=== PATIENT | male | born 1960 | race Caucasian/White ===

== ENCOUNTER 2019-01-24 09:00 | Inpatient (IN) | payer BC ==
[2019-01-24 09:51] LABS: Hemoglobin 14.2 g/dL (14.0-18.0); Mean Corpuscular HGB CONC 33.5 g/dL (32.0-36.0); Mean Corpuscular Hemoglobin 29.8 pg (27.0-31.0); Mean Platelet Volume 6.8 fL (7.4-10.4); Platelet Count 291 thou/uL (130-400); RBC Distribution Width 11.5 % (11.5-14.5); Red Blood Cell (RBC) Count 4.76 mill/uL (4.70-6.10); White Blood Cell (WBC) Count 9.4 thou/uL (4.8-10.8)
[2019-01-24 10:08] LABS: Anion Gap 13 mmol/L (10-20); BUN (Urea Nitrogen) 16 mg/dL (8.4-25.7); Calc. Creatinine Clearance 0 mL/min (70-130); Calcium 9.3 mg/dL (7.8-10.44); Carbon Dioxide 26 mmol/L (22-29); Chloride 105 mmol/L (98-107); Estimated GFR-MDRD Greater than 90; Glucose 88 mg/dL (70-105); Potassium 4.6 mmol/L (3.5-5.1); Sodium 139 mmol/L (136-145)
[2019-01-28] MEDS ORDERED: Albumin 5% 500 ML ONE (06:38)
[2019-01-28] MEDS ORDERED: Vecuronium 10 MG VIAL ONE ×2 (06:50→17:47)
[2019-01-28] MEDS ORDERED: Dexmedetomidine 200 MCG/2 ML VIAL ONE (06:50)
[2019-01-28] MEDS ORDERED: Midazolam HCl 5 mg/5 ml Vial ONE (06:50)
[2019-01-28] MEDS ORDERED: Fentanyl 250 MCG/5 ML VIAL ONE (06:50)
[2019-01-28] MEDS ORDERED: Midazolam HCl 2 mg/2 ml Vial ONE (07:05)
[2019-01-28] MEDS ORDERED: Heparin 10,000 UNITS/1 ML VIAL 30,000 UNITS in Sodium Chloride 0.9% 1,000 ML FS SCH (07:30)
[2019-01-28] MEDS ORDERED: hydrALAZINE 20 MG/ML VIAL SLOW IVP PRN (10:36)
[2019-01-28] MEDS ORDERED: Guaifenesin DM 100-10/5 ML UDCUP PO PRN (10:36)
[2019-01-28] MEDS ORDERED: niCARdipine 25 MG in Sodium Chloride 0.9% 250 ML 250 ML IVPB PRN (10:36)
[2019-01-28] MEDS ORDERED: Fentanyl 100 MCG/2 ML VIAL SLOW IVP PRN (10:36)
[2019-01-28] MEDS ORDERED: Bisacodyl 10 MG SUPP PR PRN (10:36)
[2019-01-28] MEDS ORDERED: HYDROcodone/Acetaminophen 5/325 mg Tablet PO PRN (10:36)
[2019-01-28] MEDS ORDERED: Norepinephrine 8 MG/0.9% NS 250 ML IVPB PRN (10:36)
[2019-01-28] MEDS ORDERED: Promethazine HCl 25 MG/ML VIAL IM PRN (10:36)
[2019-01-28] MEDS ORDERED: Nitroglycerin 50 MG/250 ML BOT 250 ML IVPB PRN (10:36)
[2019-01-28] MEDS ORDERED: Potassium Chloride 20 MEQ/100 ML PREMIX BAG IVPB PRN (10:36)
[2019-01-28] MEDS ORDERED: Acetaminophen 325 MG TAB PO PRN (10:36)
[2019-01-28] MEDS ORDERED: Post-Op Insulin Drip Protocol IVPB ONE (10:36)
[2019-01-28] MEDS ORDERED: Hetastarch 6% 500 ML 500 ML IVPB PRN (10:36)
[2019-01-28] MEDS ORDERED: Bisacodyl 5 MG TAB PO PRN (10:36)
[2019-01-28] MEDS ORDERED: Ondansetron PF 4 MG/2 ML Vial IVP PRN (10:36)
[2019-01-28] MEDS ORDERED: Mag-Al 1200 mg/1200 mg/30 ML UDCUP PO PRN (10:36)
[2019-01-28] MEDS ORDERED: DOPamine 400 MG/D5W 250 ML 250 ML IVPB PRN (10:36)
[2019-01-28] MEDS ORDERED: Magnesium 2 GM/50 ML 2 GM in Premix Bag 1 BAG IVPB SCH (10:45)
[2019-01-28] MEDS ORDERED: Dextrose 5% in Water 1,000 ML IV PRN (11:02)
[2019-01-28] MEDS ORDERED: HUMULIN R 100 UNITS in Sodium Chloride 0.9% 100 ML IVPB SCH (11:02)
[2019-01-28] MEDS ORDERED: Insulin Regular 300 UNITS/3 ML VIAL SC PRN (11:02)
[2019-01-28] MEDS ORDERED: Dextrose 50% Abboject 50 ML SYRINGE SLOW IVP PRN (11:02)
[2019-01-28] MEDS ORDERED: Morphine 4 MG/ML VIAL ONE (11:15)
--- NOTE | 2019-01-28 11:22 | OP ---
DATE OF PROCEDURE: 01/28/2019 PREOPERATIVE DIAGNOSIS: Coronary artery disease. PROCEDURE PERFORMED: Coronary artery bypass graft x3, left internal mammary artery to a 2 mm left anterior descending, saphenous vein graft to 1.5 mm high diagonal and 1.5 mm OM second branch. SCRUBBER SYSTEM ATTENDANT: Rajesh Burleson MD. FINDINGS: Vessels were good quality as were conduit. DESCRIPTION OF PROCEDURE: After adequate anesthesia had been obtained, an endovascular vein harvest of the left greater saphenous vein was performed. Dr. Burleson did this. I have performed a median sternotomy harvesting the left internal mammary artery. The patient was heparinized. The mammary was brought medial to the long behind a small amount of thymus gland. Neither pleurae were entered knowingly. Aorta and right atrium were cannulated. Cardiopulmonary bypass was begun. Heart was small. Aorta was cross-clamped, and after a liter of cold blood cardioplegia, 3 distal anastomoses were completed, following which 2 proximal anastomosis were completed with the cross-clamp off and the partial occluding clamp on. Both of these were marked with rings, and after inspecting for hemostasis, the patient was weaned from cardiopulmonary bypass, cannula was removed and Prolene suture was used to secure the aorta. Mediastinal drains x2 were placed following which the sternum was reapproximated with combination of #7 interrupted wire and 3 zip ties. Vancomycin paste was used on the sternal edges as was platelet rich blood. Subcutaneous tissue and skin were closed in layers. Job ID: [id number]
[2019-01-28] MEDS: Ketorolac Tromethamine 30 MG/ML VIAL IVP SCH ×2 (11:29→17:48)
[2019-01-28 11:30] LABS: #Basophils 0.1 thou/uL (0.0-0.2); #Eosinphils 0.2 thou/uL (0.0-0.7); #Lymphocytes 1.4 thou/uL (1.20-3.40); #Monocytes 0.7 thou/uL (0.11-0.59); #Neutrophils 15.3 thou/uL (1.40-6.50); %Basophils 0.3 % (0.0-1.0); %Eosinophils 1.3 % (0.0-10.0); %Lymphocytes 7.9 % (21.0-51.0); %Monocytes 3.8 % (0.0-10.0); %Neutrophils 86.7 % (42.0-75.0); Hemoglobin 11.7 g/dL (14.0-18.0); Mean Corpuscular HGB CONC 33.6 g/dL (32.0-36.0); Mean Corpuscular Hemoglobin 30.1 pg (27.0-31.0); Mean Corpuscular Volume 89.5 fL (78.0-98.0); Platelet Count 186 thou/uL (130-400); RBC Distribution Width 11.6 % (11.5-14.5); White Blood Cell (WBC) Count 17.6 thou/uL (4.8-10.8)
[2019-01-28] MEDS: Lactated Ringer's 1,000 ML IV SCH (11:31)
[2019-01-28 11:36] LABS: Actual Bicarbonate (HCO3a) 23.6 mEq/L (22-28); Base Excess (BEa) -4.5 mEq/L (-2.0 to +3.0); CO2 Tension 57.1 mmHg (35.0-45.0); Calcium, Ionized 1.13 mmol/L (1.12-1.30); Carboxyhemoglobin (COHb) 0.6 gm% (0.0-3.0); Hemoglobin (Hb) 12.4 g/dL (14.0-18.0); O2 Tension (PaO2) 236.1 mmHg (80.0-100.0); Potassium - ABG Lab 4.47 mmol/L (3.70-5.30)
[2019-01-28 11:39] LABS: pH, Arterial 7.23 (7.35-7.45)
[2019-01-28 11:40] LABS: ALV-art Gradient 49.025 (0-20); Puncture Site ALINE
[2019-01-28 11:44] LABS: INR-International Normal Ratio 1.4; PTT 35.4 SEC (22.9-36.1); Prothrombin Time 17.3 SEC (12.0-14.7)
--- NOTE | 2019-01-28 11:47 | RAD ---
Frontal radiograph chest portable supine: 01/28/2019 COMPARISON: None HISTORY: Evaluate chest following open heart surgery FINDINGS: Supine imaging demonstrates no focal consolidation or alveolar edema. Evaluation for pleura l fluid and pneumothorax is limited on supine imaging. There is an endotracheal tube in proper position. Midline sternotomy wires are noted. Coronary arterial calcification and/or stent material i s present. There is a right-sided vascular catheter with distal tip overlying the region of the cavoatrial junction. Postsurgical drainage catheters overlie the mediastinum. IMPRESSION: Postoperative changes as detailed above.
[2019-01-28 11:53] LABS: Anion Gap 5 mmol/L (10-20); BUN (Urea Nitrogen) 14 mg/dL (8.4-25.7); Calc. Creatinine Clearance 114 mL/min (70-130); Calcium 7.5 mg/dL (7.8-10.44); Carbon Dioxide 26 mmol/L (22-29); Chloride 112 mmol/L (98-107); Estimated GFR-MDRD Greater than 90; Glucose 113 mg/dL (70-105); Potassium 4.5 mmol/L (3.5-5.1); Sodium 138 mmol/L (136-145)
[2019-01-28 13:19] VITALS: BMI 18.9
[2019-01-28] MEDS: CEFAZOLIN 2 GM in Premix Bag 1 BAG IVPB SCH ×2 (14:09→21:21)
--- NOTE | 2019-01-28 14:53 | PDOC.PULCN ---
Pulmonology Consult: HPI - Date of Consult Date: 01/28/19 Time: 14:53 - Consult Details Reason for Consult: chronic cough Requesting Physician: Dr. Won Youssef - History of Present Illness HPI: 58YOM with a PMH significant for CAD post-op day #0 s/p CABG of LAD, COPD, HTN & HLD who was admitted to the CCU following his procedure for close management by pulmonology due to a reported chronic cough. He currently remains intubated & sedated so a detailed HPI was limited. Pulmonology Consult: ROS - Review of Systems ROS unobtainable: due to endotracheal tube Pulmonology Consult: PMH Source: other (chart review) Past Medical History: CAD s/p CT & CABG HLD HTN COPD h/o pneumothroax at age 19 - Family History Pertinent family history: Father- HTN & CV disease but at age 86 Mother- HTN & at age 79 - Social History Smoking Status: Former smoker (quit 2 months ago; smoked 20-30 cigs/day before quitting ~ 2 months ago) Alcohol Use: none Living Situation: Pulmonology Consult: Meds - Medications MAR Reviewed: Yes Medications: Current Medications Acetaminophen (Tylenol) 650 mg PO Q6H PRN PRN Reason: Headache/Fever Or Mild Pain Hydrocodone Bitart/Acetaminophen (Agra 5/325) 1 tab PO Q4H PRN PRN Reason: Moderate Pain (4-6) Hydrocodone Bitart/Acetaminophen (Agra 5/325) 2 tab PO Q4H PRN PRN Reason: Severe Pain (7-10) Al Hydroxide/Mg Hydroxide (Maalox) 30 ml PO Q4H PRN PRN Reason: Indigestion Albumin Human (Albumin 5%) 12.5 gm IVPB Q6H PRN PRN Reason: To Maintain SBP> 90 mmHG Stop: 01/29/19 10:37 Last Admin: 01/28/19 14:24 Dose: 12.5 gm Albumin Human (Albumin 5%) 25 gm IVPB Q6H PRN PRN Reason: To Maintain SBP > 90 mmHG Stop: 01/29/19 10:37 Albuterol/Ipratropium (Duoneb) 3 ml NEB [id number] DANE Last Admin: 01/28/19 13:02 Dose: 3 ml Aspirin (Aspirin) 325 mg PO DAILY [facility] Benzonatate (Tessalon) 100 mg PO TID [facility] Bisacodyl (Dulcolax) 10 mg PO Q12H PRN PRN Reason: Constipation Bisacodyl (Dulcolax) 10 mg DE Q12H PRN PRN Reason: Constipation Dextrose/Water (Dextrose 50%) 25 gm SLOW IVP PRN PRN PRN Reason: PER HYPOGLYCEMIC PROTOCOL Famotidine (Pepcid) 20 mg SLOW IVP Q12HR [facility] Fentanyl (Sublimaze) 25 mcg SLOW IVP Q2H PRN PRN Reason: Moderate Pain (4-6) Stop: 01/30/19 10:31 Fentanyl (Sublimaze) 50 mcg SLOW IVP Q2H PRN PRN Reason: Severe Pain (7-10) Stop: 01/30/19 10:31 Glucagon (Glucagon) 1 mg SC PRN PRN PRN Reason: PER HYPOGLYCEMIC PROTOCOL Guaifenesin/Dextromethorphan (Robitussin Dm) 15 ml PO Q4H PRN PRN Reason: Cough Hydralazine HCl (Apresoline) 10 mg SLOW IVP Q6H PRN PRN Reason: To Maintain SBP< 140mmHG Cefazolin Sodium/Dextrose 2 gm (/ Device) 50 mls @ 100 mls/hr IVPB Q8HR [facility] Stop: 01/29/19 06:29 Last Admin: 01/28/19 14:09 Dose: 50 mls Dopamine HCl/Dextrose (Dopamine 400 Mg/D5w 250 Ml) 250 mls @ 0 mls/hr IVPB PRN PRN; Protocol PRN Reason: To maintain SBP > 90 mmHG Last Admin: 01/28/19 12:01 Dose: 250 mls Hetastarch/Sodium Chloride (Hespan) 500 mls @ 0 mls/hr IVPB PRN PRN PRN Reason: To Maintain SBP > 90mmHg Stop: 01/29/19 10:31 Lactated Ringer's (Lactated Ringer's) 1,000 mls @ 75 mls/hr IV .[id number] [facility] Last Admin: 01/28/19 11:31 Dose: 1,000 mls Norepinephrine Bitartrate (Levophed) 250 mls @ 0 mls/hr IVPB PRN PRN; Protocol PRN Reason: To maintain SBP > 90 mmHG Magnesium Sulfate 2 gm/ Device 50 mls @ 50 mls/hr IVPB NOW DANE Stop: 01/28/19 15:00 Last Admin: 01/28/19 11:29 Dose: 50 mls Nicardipine HCl 25 mg/ Sodium (Chloride) 260 mls @ 0 mls/hr IVPB INF PRN; Protocol PRN Reason: To Maintain SBP< 140mmHG Nitroglycerin/Dextrose (Nitroglycerin 50 Mg/250 Ml Bot) 250 mls @ 0 mls/hr IVPB PRN PRN; Protocol PRN Reason: To Maintain SBP< 140mmHG Insulin Human Regular 100 (units/ Sodium Chloride) 101 mls @ 0 mls/hr IVPB INF DANE; Protocol Dextrose/Water (D5w) 1,000 mls @ 0 mls/hr IV INF PRN PRN Reason: PRN HYPOGLYCEMIC PROTOCOL Insulin Glargine (Lantus) 0 units SC ONE PRN PRN Reason: POST OPEN HEART ORDERS Stop: 01/29/19 17:00 Insulin Human Regular (Humulin R) 0 units SC Q4H PRN; Protocol PRN Reason: POST CABG SLIDING SCALE Ketorolac Tromethamine (Toradol) 15 mg IVP Q6HR [facility] Stop: 01/31/19 12:01 Last Admin: 01/28/19 11:29 Dose: 15 mg Morphine Sulfate (Morphine) 2 mg SLOW IVP Q15MIN PRN PRN Reason: Severe Pain (7-10) Ondansetron HCl (Zofran) 4 mg IVP Q6H PRN PRN Reason: Nausea/Vomiting Last Admin: 01/28/19 14:09 Dose: 4 mg Polyethylene Glycol (Miralax) 17 gm PO DAILY [facility] Potassium Chloride (Kcl) 20 meq IVPB PRN PRN PRN Reason: K level </= 4.0 Promethazine HCl (Phenergan) 6.25 mg IM Q4H PRN PRN Reason: Nausea/Vomiting - Allergies Allergies/Adverse Reactions: Allergies Allergy/AdvReac Type Severity Reaction Status Date / Time No Known Allergies Allergy Unverified 01/24/19 09:03 Pulmonology Consult: PE - Physical Exam Constitutional: NAD (remains intubated but breathing spontaneously in CPAP mode without any issues) HEENT: moist MMs, sclera anicteric Neck: supple, full ROM Cardiovascular: RRR, no significant murmur Respiratory: clear to auscultation bilaterally Gastrointestinal: soft, non-tender Musculoskeletal: no edema, pulses present Neurological: non-focal, moves all 4 limbs Skin: no rash, normal turgor, cap refill <2 seconds Deviation from normal: chest tube secured in place in R anterior chest with clean, dry & intact -: dressing in place Pulmonology Consult: Results - Labs Result Diagrams: 01/29/19 04:50 01/29/19 04:50 - ABG Interpretation Attestation: I reviewed and interpreted this ABG. ABG Results: ABG pH 7.23 (7.35-7.45) L* 01/28/19 11:35 ABG pCO2 57.1 mmHg (35.0-45.0) H 01/28/19 11:35 ABG O2 Sat Calc/Bushra 99.4 % (94.0-98.0) H 01/28/19 11:35 ABG Base Excess -4.5 mEq/L (-2.0 to +3.0) L 01/28/19 11:35 Interpretation: respiratory acidosis - Radiology Interpretation Chest x-ray Status: image reviewed by me (endotracheal tube in proper position. Midline sternotomy wires are noted. Coronary arterial calcification and/or stent material is present. There is a right-sided vascular catheter with distal tip overlying the region of the cavoatrial junction. Postsurgical drainage catheters overlie the mediastinum.), report reviewed by me Pulmonology Consult: A/P - Problem (1) Acute respiratory acidosis Current Visit: Yes Code(s): E87.2 - ACIDOSIS Status: Acute (2) CAD (coronary artery disease), autologous vein bypass graft Current Visit: Yes Code(s): I25.810 - ATHEROSCLEROSIS OF CABG W/O ANGINA PECTORIS Status: Acute - Time Time: 50% of the time was spent in coordination of care (as documented) at patient's floor/unit and/or counseling patient. Time with Patient: greater than 70 minutes - Plan Plan: 58YOM with a PMH significant for CAD post-op day #0 s/p CABG of LAD who was admitted to the CCU intubated following his procedure due to respiratory acidosis. 1. CAD s/p CABG: Being managed by CV Mikael carrillo. 2. COPD: Respiratory acidosis confirmed with ABG done post-op. Patient remains intubated but is off sedation and following commands. VSS on dopamine @ 2.5mcg/ kg/min. Breathing well on his own in CPAP mode at 40% FiO2, PEEP of 5, Ps of 10 , and TV of 500. Will decrease Ps to 5 and obtain a repeat ABG & will likely extubate later today. Will start DANE Duonebs Q6H. 3. HTN: BP low normal range currently on dopamine @ 2.5mcg/kg/min. Will continue to wean as tolerated by patient. 4. HLD: Resume home meds. Dispo: Currently stable on CPAP mode on ventilator but anticipate successful extubation before end of today. Will continue close monitoring in CCU overnight. Addendum - Attending - Attending Attestation Date/Time: 01/28/191929 I personally evaluated the patient and discussed the management with Dr. Ramos. I agree with the History, Examination, Assessment and Plan documented above with any addition or exceptions noted below.
[2019-01-28 15:51] LABS: Actual Bicarbonate (HCO3a) 20.2 mEq/L (22-28); Base Excess (BEa) -5.7 mEq/L (-2.0 to +3.0); CO2 Tension 41.2 mmHg (35.0-45.0); Calcium, Ionized 1.14 mmol/L (1.12-1.30); Carboxyhemoglobin (COHb) 0.6 gm% (0.0-3.0); Hemoglobin (Hb) 11.8 g/dL (14.0-18.0); O2 Tension (PaO2) 109.3 mmHg (80.0-100.0); Potassium - ABG Lab 4.12 mmol/L (3.70-5.30); pH, Arterial 7.31 (7.35-7.45)
[2019-01-28] MEDS: Fentanyl 100 MCG/2 ML VIAL SLOW IVP PRN ×2 (16:04→20:30)
[2019-01-28 16:10] LABS: Hemoglobin 11.5 g/dL (14.0-18.0)
[2019-01-28 16:20] LABS: Puncture Site ALINE
[2019-01-28 16:34] LABS: Potassium 4.3 mmol/L (3.5-5.1)
[2019-01-28] MEDS ORDERED: Potassium Chloride 60 MEQ/30 ML VIAL ONE (17:47)
[2019-01-28] MEDS ORDERED: Heparin 5,000 UNITS/ML VIAL ONE (17:47)
[2019-01-28] MEDS ORDERED: Lidocaine 2% PF 100 mg/5 ml Syringe ONE (17:47)
[2019-01-28] MEDS ORDERED: Ondansetron PF 4 MG/2 ML Vial ONE (17:47)
[2019-01-28] MEDS ORDERED: Heparin 30,000 units/30 ml VIAL ONE (17:47)
[2019-01-28] MEDS ORDERED: Aminocaproic Acid 5 GM/20 ML VIAL ONE (17:47)
[2019-01-28] MEDS ORDERED: PROPOFOL 200 MG/20 ML VIAL ONE (17:47)
[2019-01-28] MEDS ORDERED: Protamine Sulfate 250 MG/25 ML VIAL ONE (17:47)
[2019-01-28] MEDS ORDERED: Mannitol 12.5 GM/50 ML ONE (17:47)
[2019-01-28] MEDS ORDERED: Nitroglycerin 50 MG/250 ML BOT ONE (17:47)
[2019-01-28] MEDS ORDERED: Sodium Bicarb 50 MEQ/50 ML VIAL ONE (17:47)
[2019-01-28] MEDS ORDERED: Thrombin 5000 UNITS/5 ML VIAL ONE (17:47)
[2019-01-28] MEDS ORDERED: Calcium Chloride 1 GM/10 ML Abboject SYRINGE ONE (17:47)
[2019-01-28] MEDS ORDERED: Glycopyrrolate 0.2 MG/ML 5 ML SYRINGE ONE (17:47)
[2019-01-28] MEDS ORDERED: Magnesium 5 GM/10 ML VIAL ONE (17:47)
[2019-01-28] MEDS ORDERED: Norepinephrine 4 MG/4 ML VIAL ONE (17:47)
[2019-01-28] MEDS ORDERED: Papaverine 60 MG/2 ML VIAL ONE (17:47)
[2019-01-28] MEDS ORDERED: Cardioplegic Soln 1,000 ML BAG ONE (17:47)
[2019-01-28] MEDS: Benzonatate 100 MG CAP PO SCH ×2 (17:48→20:25)
[2019-01-28] MEDS: HYDROcodone/Acetaminophen 5/325 mg Tablet PO PRN ×2 (17:49→22:30)
--- NOTE | 2019-01-28 20:29 | CON ---
DATE OF CONSULTATION: HISTORY OF PRESENT ILLNESS: Jae Hernandez is a 58-year-old white male with coronary artery disease, who is status post CABG and still intubated. History was obtained from the medical record. He apparently had myocardial infarction three years ago, underwent stent placement at that time. He had recurrent chest pain 3 months ago and had 2 additional stents placed. He was to undergo further stenting on January 20, 2019 and was found to have more extensive proximal LAD disease and was referred for CABG, that was performed today with GARCIA to LAD, saphenous vein graft to the diagonal and to the obtuse marginal. At the present time, he is on low-dose dopamine. PAST MEDICAL HISTORY: Hypertension, hyperlipidemia, coronary artery disease, COPD, pneumothorax at age 19. MEDICATIONS: 1. Metoprolol 25 mg q.a.m. 2. Lisinopril 40 daily. 3. Atorvastatin 40 daily. 4. Brilinta 90 mg b.i.d., which has been discontinued. 5. Aspirin 81 daily. 6. Magnesium 250 daily. 7. Nitroglycerin p.r.n. 8. ProAir two puffs q.6 hours p.r.n. ALLERGIES: NONE. SOCIAL HISTORY: He smoked until 2 months ago. FAMILY HISTORY: Negative for coronary artery disease. REVIEW OF SYSTEMS: Unobtainable due to the patient being sedated on a ventilator. PHYSICAL EXAMINATION: VITAL SIGNS: Blood pressure 104/56, pulse 64. HEENT: PERRL. NECK: Supple. CHEST: Clear. CARDIAC: S1 and S2 normal without any S3, S4, or murmurs. ABDOMEN: Normal bowel sounds without tenderness. EXTREMITIES: Revealed no clubbing, cyanosis, or edema. NEUROLOGIC: Grossly intact. IMAGING STUDIES: EKG reveals sinus bradycardia with rate of 57 per minute. No acute changes. LABORATORY DATA: Hemoglobin 11.7, hematocrit 34.9, white count 17,600, platelets 186,000. INR 1.4. PH of 7.23, pCO2 of 57.1, pO2 of 236.1. Sodium 138, potassium 4.5, chloride 112, carbon dioxide 26, BUN 14, creatinine 0.62. IMPRESSION: 1. Status post coronary artery bypass graft x3, hemodynamically stable at this time. 2. History of previous myocardial infarctions with stents placed at that time and also stents placed approximately 3 months ago. 3. Smoker/chronic obstructive pulmonary disease until 2 months ago. 4. Hypertension. 5. Hyperlipidemia. PLAN: The patient's vital signs to be watched closely. The ventilator will continue to be weaned. Job ID: [id number] MTDD
[2019-01-28] MEDS ORDERED: Famotidine/PF 20 mg/2ml Vial SLOW IVP SCH (21:00)
[2019-01-29] MEDS: Ketorolac Tromethamine 30 MG/ML VIAL IVP SCH ×2 (00:19→06:54)
[2019-01-29] MEDS: Lactated Ringer's 1,000 ML IV SCH (00:23)
[2019-01-29] MEDS: HYDROcodone/Acetaminophen 5/325 mg Tablet PO PRN ×4 (04:51→18:21)
[2019-01-29] MEDS: CEFAZOLIN 2 GM in Premix Bag 1 BAG IVPB SCH (05:09)
[2019-01-29 05:29] LABS: #Basophils 0.1 thou/uL (0.0-0.2); #Lymphocytes 1.2 thou/uL (1.20-3.40); #Monocytes 1.2 thou/uL (0.11-0.59); #Neutrophils 10.3 thou/uL (1.40-6.50); %Basophils 0.4 % (0.0-1.0); %Eosinophils 0.1 % (0.0-10.0); %Lymphocytes 9.5 % (21.0-51.0); %Monocytes 9.3 % (0.0-10.0); %Neutrophils 80.7 % (42.0-75.0); Hemoglobin 10.7 g/dL (14.0-18.0); Mean Corpuscular HGB CONC 34.1 g/dL (32.0-36.0); Mean Corpuscular Hemoglobin 30.9 pg (27.0-31.0); Mean Corpuscular Volume 90.7 fL (78.0-98.0); Mean Platelet Volume 7.3 fL (7.4-10.4); Platelet Count 190 thou/uL (130-400); RBC Distribution Width 11.6 % (11.5-14.5); Red Blood Cell (RBC) Count 3.45 mill/uL (4.70-6.10); White Blood Cell (WBC) Count 12.8 thou/uL (4.8-10.8)
[2019-01-29 05:48] LABS: Anion Gap 9 mmol/L (10-20); BUN (Urea Nitrogen) 17 mg/dL (8.4-25.7); Calc. Creatinine Clearance 110 mL/min (70-130); Calcium 8.4 mg/dL (7.8-10.44); Carbon Dioxide 25 mmol/L (22-29); Chloride 107 mmol/L (98-107); Estimated GFR-MDRD Greater than 90; Glucose 100 mg/dL (70-105); Potassium 4.5 mmol/L (3.5-5.1); Sodium 136 mmol/L (136-145)
[2019-01-29] MEDS ORDERED: Acetaminophen 325 MG TAB PO PRN (06:52)
[2019-01-29] MEDS ORDERED: Bisacodyl 10 MG SUPP PR PRN (06:52)
[2019-01-29] MEDS ORDERED: Mag-Al 1200 mg/1200 mg/30 ML UDCUP PO PRN (06:52)
[2019-01-29] MEDS ORDERED: Nitroglycerin 0.4 MG TAB (25 Tab Bottle) SL PRN (06:52)
[2019-01-29] MEDS ORDERED: PROVENTIL INHALER 6.7 G (200 INHALATIONS) INH PRN (06:52)
[2019-01-29] MEDS ORDERED: Ibuprofen 200 MG TAB PO SCH (06:52)
[2019-01-29] MEDS ORDERED: Bisacodyl 5 MG TAB PO PRN (06:52)
[2019-01-29] MEDS ORDERED: Mineral Oil ENEMA PR PRN (06:52)
[2019-01-29] MEDS: Aspirin 325 mg Enteric Coated Tablet PO SCH (08:04)
[2019-01-29] MEDS: Ibuprofen 200 MG TAB PO SCH ×2 (08:04→17:48)
[2019-01-29] MEDS: Famotidine 20 MG TAB PO SCH ×2 (08:04→21:21)
[2019-01-29] MEDS: Benzonatate 100 MG CAP PO SCH ×3 (08:04→21:21)
[2019-01-29] MEDS: Polyethylene Glycol 3350 17 GM Packet PO SCH (08:05)
--- NOTE | 2019-01-29 08:40 | RAD ---
CHEST ONE VIEW: HISTORY: Postop open heart. COMPARISON: 01/28/2019 FINDINGS: Postop midline sternotomy. Right subclavian catheter. Chest tubes in place. Mild vascular congesti on. No significant acute process. IMPRESSION: Mild vascular congestion. Continued short-term followup. POS: [facility]
[2019-01-29] MEDS ORDERED: Aspirin 325 MG TAB PO SCH (09:00)
--- NOTE | 2019-01-29 10:53 | PRG ---
DATE OF SERVICE: 01/29/2019 SERVICE: Pulmonary Medicine. INTERVAL HISTORY: The patient is doing absolutely wonderful. He extubated quite comfortably yesterday. Overnight, he has been weaned down to room air. He has appropriate chest discomfort. It hurts when he takes a big breath. That being said, he is coughing and not bringing up any phlegm. He denies any current fevers, chills, or overnight events. He is off all pressors, and is out of bed into a chair. His appetite is actually picked up very nicely. Overall, he has no specific complaints. PHYSICAL EXAMINATION: VITAL SIGNS: Afebrile, pulse 85, blood pressure 113/67, respirations 82, and saturation 94%, currently on room air. GENERAL: The patient is awake and alert, in no apparent distress. LUNGS: Decent air entry with a prolonged expiratory phase. No polyphonic wheezing, crackles, or rhonchi appreciated today. HEART: Normal rate and regular. ABDOMEN: Soft, nontender, and nondistended. Bowel sounds are positive. MUSCULOSKELETAL: No cyanosis or clubbing. There is trace pitting in the left lower extremity. No pitting in the right lower extremity. NEUROLOGIC: Grossly nonfocal. LABORATORY DATA: WBC 12.8, hemoglobin 10.7, platelets 190,000. INR 1.4. Basic metabolic profile is essentially unremarkable with a creatinine that is stable at 0.63. ASSESSMENT: Chest x-ray demonstrates no acute cardiopulmonary abnormality. Sternotomy wires are once again noted. Mediastinal drain and chest tube are in place. Right subclavian catheter is unchanged. ASSESSMENT: 1. Acute hypoxic respiratory failure, resolved. 2. Chronic obstructive pulmonary disease without current exacerbation. 3. Coronary artery disease, status post coronary artery bypass graft, postop day #1. DISCUSSION AND PLAN: The patient is doing fine from respiratory standpoint. He is stable for transition out of the ICU to the telemetry unit. Pulmonary will continue to follow for the time being. Hopefully, his chest tubes will be able to be removed in short order. Job ID: [id number]
[2019-01-29] MEDS: Atorvastatin Calcium 20 MG TAB PO SCH (21:21)
[2019-01-30] MEDS: Ibuprofen 200 MG TAB PO SCH ×3 (00:47→16:56)
[2019-01-30] MEDS: HYDROcodone/Acetaminophen 5/325 mg Tablet PO PRN ×3 (06:24→18:22)
[2019-01-30] MEDS ORDERED: Sodium Chloride 0.9% 10 ML ONE (07:55)
[2019-01-30] MEDS: Potassium Chloride 10 MEQ TAB PO SCH (08:33)
[2019-01-30] MEDS: Metoprolol Tartrate 25 MG TAB PO SCH ×2 (08:33→20:31)
[2019-01-30] MEDS: Lisinopril 5 MG TAB PO SCH ×2 (08:34→20:32)
[2019-01-30] MEDS: Famotidine 20 MG TAB PO SCH ×2 (08:34→20:31)
[2019-01-30] MEDS: Benzonatate 100 MG CAP PO SCH ×3 (08:34→20:32)
[2019-01-30] MEDS: Aspirin 325 mg Enteric Coated Tablet PO SCH (08:34)
[2019-01-30] MEDS: Furosemide 40 MG TAB PO SCH (08:34)
[2019-01-30] MEDS: Polyethylene Glycol 3350 17 GM Packet PO SCH (08:34)
[2019-01-30] MEDS: Ondansetron PF 4 MG/2 ML Vial IVP PRN ×2 (11:36→18:22)
--- NOTE | 2019-01-30 16:48 | EKG ---
Test Reason : POST CABG Blood Pressure : / mmHG Vent. Rate : 057 BPM Atrial Rate : 057 BPM P-R Int : 122 ms QRS Dur : 088 ms QT Int : 498 ms P-R-T Axes : 081 076 087 degrees QTc Int : 484 ms Sinus bradycardia Prolonged QT Abnormal ECG Confirmed by VERONICA LYON ([id number]) on 01/30/2019 4:47:52 PM Referred By: PRANEETH Confirmed By:VERONICA LYON
--- NOTE | 2019-01-30 16:51 | PRG ---
DATE OF SERVICE: 01/30/2019 SERVICE: Pulmonary Medicine. INTERVAL HISTORY: The patient is doing just OK from respiratory standpoint. He had a coughing fit and is starting to liberate clear phlegm which makes his breathing better. Chest discomforts associated with chest tubes are considerably better. Denies any current fevers. He had chills when sipping on coffee this am. There were no significant overnight events. Overall, the patient feels like he has progressed very nicely. He has been working with Physical Therapy. His appetite is good. PHYSICAL EXAMINATION: VITAL SIGNS: Afebrile, pulse 84, blood pressure 135/76, respirations 18, and saturation 93%, currently on room air. GENERAL: The patient is awake and alert, in no apparent distress. LUNGS: Decent air entry. Slightly prolonged expiratory phase, but no wheezing. HEART: Normal rate, regular. ABDOMEN: Soft, nontender, nondistended. Bowel sounds are positive. MUSCULOSKELETAL: No cyanosis or clubbing. There is no pitting in the bilateral lower extremities. NEUROLOGIC: Grossly nonfocal. ASSESSMENT: 1. Acute hypoxic respiratory failure, resolved. 2. Coronary artery disease, status post coronary artery bypass graft, postop day 2. 3. Chronic obstructive pulmonary disease without current exacerbation. DISCUSSION AND PLAN: The patient is doing just OK from a respiratory standpoint. His increasing cough and clear sputum are of concern to me. I will continue to follow for the time being. 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 I will try to get him in clinic within 2 to 3 months to continue caring for his pulmonary needs through time. Job ID: [id number] MTDD
[2019-01-30] MEDS: Atorvastatin Calcium 20 MG TAB PO SCH (20:32)
[2019-01-31] MEDS: Ibuprofen 200 MG TAB PO SCH ×3 (00:21→16:36)
[2019-01-31] MEDS: Potassium Chloride 10 MEQ TAB PO SCH (08:45)
[2019-01-31] MEDS: Benzonatate 100 MG CAP PO SCH ×3 (08:46→20:13)
[2019-01-31] MEDS: Furosemide 40 MG TAB PO SCH (08:47)
[2019-01-31] MEDS: Lisinopril 10 MG TAB PO SCH ×2 (08:47→20:13)
[2019-01-31] MEDS: Polyethylene Glycol 3350 17 GM Packet PO SCH (08:47)
[2019-01-31] MEDS: Aspirin 325 mg Enteric Coated Tablet PO SCH (08:47)
[2019-01-31] MEDS: Famotidine 20 MG TAB PO SCH ×2 (08:47→20:13)
[2019-01-31] MEDS ORDERED: Metoprolol Tartrate 25 MG TAB PO SCH (09:00)
[2019-01-31 10:04] LABS: Actual Bicarbonate (HCO3a) 24.3 mEq/L (22-28); Analyzer IN Cardio OR; Base Excess (BEa) -0.7 mEq/L (-2.0 to +3.0); CO2 Tension 41.4 mmHg (35.0-45.0); Calcium, Ionized 1.15 mmol/L (1.12-1.30); Carboxyhemoglobin (COHb) 0.5 gm% (0.0-3.0); Hemoglobin (Hb) 13.1 g/dL (14.0-18.0); Potassium - ABG Lab 3.91 mmol/L (3.70-5.30); pH, Arterial 7.39 (7.35-7.45)
[2019-01-31 10:04] LABS: Actual Bicarbonate (HCO3a) 25.7 mEq/L (22-28); Analyzer IN Cardio OR; Base Excess (BEa) -1.9 mEq/L (-2.0 to +3.0); CO2 Tension 56.7 mmHg (35.0-45.0); Calcium, Ionized 1.13 mmol/L (1.12-1.30); Carboxyhemoglobin (COHb) 0.1 gm% (0.0-3.0); Hemoglobin (Hb) 12.7 g/dL (14.0-18.0); Potassium - ABG Lab 3.83 mmol/L (3.70-5.30); pH, Arterial 7.27 (7.35-7.45)
[2019-01-31 10:05] LABS: Actual Bicarbonate (HCO3a) 28.4 mEq/L (22-28); Analyzer IN Cardio OR; Base Excess (BEa) 0.9 mEq/L (-2.0 to +3.0); Calcium, Ionized 1.02 mmol/L (1.12-1.30); Carboxyhemoglobin (COHb) 0.3 gm% (0.0-3.0); O2 Tension (PaO2) 485.1 mmHg (80.0-100.0); Potassium - ABG Lab 5.18 mmol/L (3.70-5.30); pH, Arterial 7.29 (7.35-7.45)
[2019-01-31 10:05] LABS: Actual Bicarbonate (HCO3a) 22.7 mEq/L (22-28); Analyzer IN Cardio OR; Base Excess (BEa) -1.8 mEq/L (-2.0 to +3.0); CO2 Tension 37.4 mmHg (35.0-45.0); Calcium, Ionized 1.01 mmol/L (1.12-1.30); Carboxyhemoglobin (COHb) 0.3 gm% (0.0-3.0); Hemoglobin (Hb) 9.1 g/dL (14.0-18.0); O2 Tension (PaO2) 333.1 mmHg (80.0-100.0); Potassium - ABG Lab 4.66 mmol/L (3.70-5.30)
[2019-01-31 10:06] LABS: Actual Bicarbonate (HCO3a) 22.1 mEq/L (22-28); Analyzer IN Cardio OR; Base Excess (BEa) -3.6 mEq/L (-2.0 to +3.0); CO2 Tension 42.3 mmHg (35.0-45.0); Carboxyhemoglobin (COHb) 0.3 gm% (0.0-3.0); Hemoglobin (Hb) 11.5 g/dL (14.0-18.0); Potassium - ABG Lab 4.37 mmol/L (3.70-5.30); pH, Arterial 7.34 (7.35-7.45)
[2019-01-31 10:06] LABS: Actual Bicarbonate (HCO3a) 21.3 mEq/L (22-28); Analyzer IN Cardio OR; Base Excess (BEa) -3.1 mEq/L (-2.0 to +3.0); CO2 Tension 35.9 mmHg (35.0-45.0); Calcium, Ionized 1.16 mmol/L (1.12-1.30); Carboxyhemoglobin (COHb) 0.3 gm% (0.0-3.0); Hemoglobin (Hb) 9.7 g/dL (14.0-18.0); Potassium - ABG Lab 4.19 mmol/L (3.70-5.30); pH, Arterial 7.39 (7.35-7.45)
[2019-01-31 10:07] LABS: Puncture Site ALINE
[2019-01-31 10:08] LABS: O2 Tension (PaO2) 549.8 mmHg (80.0-100.0); Puncture Site ALINE
[2019-01-31 10:09] LABS: CO2 Tension 60.8 mmHg (35.0-45.0); Puncture Site ALINE
[2019-01-31 10:10] LABS: Puncture Site ALINE
[2019-01-31 10:10] LABS: O2 Tension (PaO2) 514.4 mmHg (80.0-100.0); Puncture Site ALINE
[2019-01-31 10:11] LABS: Puncture Site ALINE
[2019-01-31] MEDS ORDERED: predniSONE 20 MG TAB PO SCH (13:00)
--- NOTE | 2019-01-31 13:15 | PRG ---
DATE OF SERVICE: 01/31/2019 SERVICE: Pulmonary Medicine. INTERVAL HISTORY: The patient has started having increasing cough with sputum production. The sputum character is actually turning to become a pale yellow. He denies any current fevers or chills. There were no significant overnight events. He actually reports having a wonderful night of sleep. That being said, his cough is increasingly productive. PHYSICAL EXAMINATION: VITAL SIGNS: Afebrile, pulse 100, blood pressure 133/81, respirations 18, and saturation 95%, currently on room air. GENERAL: The patient is awake and alert, in no apparent distress. LUNGS: Extensive rhonchi are present. They are worse on the right. No prolonged expiratory phase or wheezing is appreciated. HEART: Normal rate. Regular. ABDOMEN: Soft, nontender, and nondistended. Bowel sounds are positive. MUSCULOSKELETAL: No cyanosis or clubbing. No pitting in the bilateral lower extremities. NEUROLOGIC: Grossly nonfocal. ASSESSMENT: 1. Acute hypoxic respiratory failure, resolved. 2. Coronary artery disease, status post coronary artery bypass graft, postop day 3. 3. Chronic obstructive pulmonary disease with current exacerbation. DISCUSSION AND PLAN: The patient is having increasing cough and sputum production, it is starting to change color. I believe we are in the very early stages of a COPD exacerbation. As such, I will put him on a brief course of prednisone, an antibiotic directed at aspiration/lung related pathogens. Pulmonary will continue to follow, intermittently. If he gets better, he will be stable for transition home tomorrow. If on the other hand, his sputum production becomes more severe, he will need to stay in-house until he clearly takes a step in the right direction. Job ID: [id number]
--- NOTE | 2019-01-31 14:09 | PRG ---
DATE OF SERVICE: 01/31/2019 SUBJECTIVE: Mr. Hernandez is doing well. He is sitting up in the chair, he feels well. He has no chest pain or pressure. OBJECTIVE: VITAL SIGNS: Blood pressure is high at 164/86, pulse 111 and sinus. LUNGS: Clear. CARDIAC: Normal S1, normal S2. ABDOMEN: Soft and nontender. EXTREMITIES: No edema. ASSESSMENT: 1. Status post bypass surgery. 2. Longstanding hypertension, he said it has been high for many years. 3. History of high heart rate as well. PLAN: 1. Increase beta blockers to 50 mg twice a day. 2. Continue lisinopril. 3. If blood pressure is elevated tomorrow, consider adding nifedipine, we will re-evaluate tomorrow first. Job ID: [id number]
[2019-01-31] MEDS: Guaifenesin DM 100-10/5 ML UDCUP PO PRN (14:35)
[2019-01-31] MEDS: Atorvastatin Calcium 20 MG TAB PO SCH (20:13)
[2019-01-31] MEDS: Metoprolol Tartrate 50 MG TAB PO SCH (20:13)
[2019-02-01] MEDS: Ibuprofen 200 MG TAB PO SCH ×2 (00:05→08:37)
[2019-02-01] MEDS: Guaifenesin DM 100-10/5 ML UDCUP PO PRN ×2 (01:13→15:40)
[2019-02-01] MEDS ORDERED: predniSONE 20 MG TAB PO SCH (08:00)
[2019-02-01] MEDS: Metoprolol Tartrate 50 MG TAB PO SCH (08:32)
[2019-02-01] MEDS: Furosemide 40 MG TAB PO SCH (08:32)
[2019-02-01] MEDS: Lisinopril 10 MG TAB PO SCH (08:32)
[2019-02-01] MEDS: Aspirin 325 mg Enteric Coated Tablet PO SCH (08:32)
[2019-02-01] MEDS: Famotidine 20 MG TAB PO SCH (08:32)
[2019-02-01] MEDS: Potassium Chloride 10 MEQ TAB PO SCH (08:33)
[2019-02-01] MEDS: Benzonatate 100 MG CAP PO SCH ×2 (08:33→15:40)
[2019-02-01] MEDS: Polyethylene Glycol 3350 17 GM Packet PO SCH (08:35)
[2019-02-01] MEDS ORDERED: NIFEdipine XL 30 MG TAB PO SCH (12:15)
[2019-02-01 15:41] VITALS: BP 165/92; TEMP 98.4
[2019-02-02] MEDS ORDERED: Lisinopril 10 MG TAB PO SCH (09:00)
[2019-02-02] MEDS ORDERED: NIFEdipine XL 30 MG TAB PO SCH (09:00)
[2019-02-02] MEDS ORDERED: Lisinopril 20 MG TAB PO SCH (09:00)
== END 2019-02-01 16:40 | disposition home or self-care (01) | DRG 235 ==
LOC: SURG A 01-28 05:46 → EDSTATUS 01-28 09:00 → CCU 01-28 10:50 → 2NO 01-29 09:31
PROVIDERS: ADMIT Thoracic Surgery (Cardiothoracic Vascular Surgery); ATTEND Thoracic Surgery (Cardiothoracic Vascular Surgery)
PROC: 02100Z9 Bypass Coronary Artery, One Artery from Left Internal Mammary, Open Approach (ICD-10-PCS; principal; 2019-01-28)
PROC: 021109W Bypass Coronary Artery, Two Arteries from Aorta with Autologous Venous Tissue, Open Approach (ICD-10-PCS; 2019-01-28)
PROC: 06BQ4ZZ Excision of Left Saphenous Vein, Percutaneous Endoscopic Approach (ICD-10-PCS; 2019-01-28)
PROC: 5A1221Z Performance of Cardiac Output, Continuous (ICD-10-PCS; 2019-01-28)
DX: I25.10 Atherosclerotic heart disease of native coronary artery without angina pectoris (principal); J96.01 Acute respiratory failure with hypoxia; E87.2 Acidosis; I10 Essential (primary) hypertension; E78.5 Hyperlipidemia, unspecified; J43.9 Emphysema, unspecified; I25.2 Old myocardial infarction; Z87.891 Personal history of nicotine dependence; Z79.899 Other long term (current) drug therapy; Z79.82 Long term (current) use of aspirin; Z95.5 Presence of coronary angioplasty implant and graft
CPT/HCPCS: 36416; 36430; 71045; 80048; 82805; 82947; 85025; 85027; 85610; 85730; 86850; 86900; 86901; 93005; 93010; 93798; 94002; 94150; 94640; J0690; J1265; J1642; J1644; J1815; J1885; J2001; J2150; J2250; J2270; J2405; J2440; J2704; J2720; J3010; J3370; J3475; J3480; J3490; J7050; J7512; J7620; P9045; S0017; S0028

== ENCOUNTER 2019-05-14 10:52 | Outpatient (CLI) | payer BC ==
--- NOTE | 2019-05-14 12:29 | RAD ---
PA AND LATERAL CHEST: HISTORY: Dyspnea. COMPARISON: 01/29/2019 study. FINDINGS: Heart size is within normal limits. There are postop sternotomy changes present. Lungs are hyperexp anded suggesting an element of COPD. IMPRESSION: Essentially stable chest. Chronic obstructive pulmonary disease-type change. POS: [facility]
== END 2019-05-14 10:53 | disposition home or self-care (01) ==
LOC: RAD 10:52
PROVIDERS: ATTEND Internal Medicine
DX: R06.00 Dyspnea, unspecified (principal); J44.9 Chronic obstructive pulmonary disease, unspecified
CPT/HCPCS: 71046

== ENCOUNTER 2019-07-17 18:30 | Outpatient (CLI) | payer BC | END 2019-07-17 18:31 | disposition home or self-care (01) | LOC: SLEEPLAB 18:30 | PROVIDERS: ATTEND Internal Medicine | DX: G47.33 Obstructive sleep apnea (adult) (pediatric) (principal); R06.83 Snoring; J44.9 Chronic obstructive pulmonary disease, unspecified; I10 Essential (primary) hypertension; I25.10 Atherosclerotic heart disease of native coronary artery without angina pectoris; I25.2 Old myocardial infarction; R35.1 Nocturia | CPT/HCPCS: 95806 ==

== ENCOUNTER 2019-08-10 15:11 | Inpatient (IN) | payer BC ==
[2019-08-10] MEDS ORDERED: Acetaminophen 500 MG TAB ONE (16:17)
[2019-08-10] MEDS ORDERED: Morphine 4 MG/ML VIAL ONE (16:23)
[2019-08-10] MEDS ORDERED: Ondansetron PF 4 MG/2 ML Vial ONE (16:30)
[2019-08-10] MEDS ORDERED: Nitroglycerin 50 MG/250 ML BOT 250 ML IVPB SCH ×2 (17:15→18:00)
[2019-08-10] MEDS ORDERED: Nitroglycerin 50 MG/250 ML BOT 250 ML ONE (17:40)
[2019-08-10] MEDS ORDERED: Acetaminophen 325 MG TAB PO PRN (17:48)
[2019-08-10] MEDS ORDERED: Acetaminophen 650 MG Suppository PR PRN (17:48)
[2019-08-10] MEDS ORDERED: Nitroglycerin 0.4 MG TAB (25 Tab Bottle) SL PRN (17:48)
[2019-08-10 17:51] LABS: Troponin I 10.649 ng/mL (< 0.028)
[2019-08-10] MEDS ORDERED: Clopidogrel Bisulfate 75 MG TAB ONE (17:53)
[2019-08-10] MEDS ORDERED: Clopidogrel Bisulfate 300 MG TAB PO SCH (18:00)
[2019-08-10] MEDS ORDERED: Enoxaparin Sodium 40 MG/0.4 ML SYRINGE SC SCH (18:00)
[2019-08-10] MEDS ORDERED: Morphine 2 MG/ML SYRINGE SLOW IVP PRN (18:03)
--- NOTE | 2019-08-10 18:09 | PDOC.EVN ---
Event Note - Event Note Event Note: Chart reviewed. Patient seen. Pt denies any chest pain at this time, no other complaints. VSS. S1, S2, reg. Lungs CTA [place]. Patient with PMHx of CAD s/p CABD presented to [place] ER with chest pain. Found to have NSTEMI. Pt received one dose of Lovenox, aspirin continued. Also receibved Plavix loading dose. Started on nitro drip, being admitted to CCU for further management. Discussed plan of care with Ms. Espino.
[2019-08-10 18:41] LABS: CKMB 86.8 ng/mL (0-6.6)
[2019-08-10 19:12] VITALS: BMI 19.2
[2019-08-10 20:37] LABS: Troponin I 11.178 ng/mL (< 0.028)
[2019-08-10] MEDS ORDERED: Atorvastatin Calcium 40 MG TAB PO SCH (21:00)
[2019-08-10] MEDS ORDERED: niCARdipine 25 MG in Sodium Chloride 0.9% 250 ML 240 ML IVPB SCH (22:00)
--- NOTE | 2019-08-11 01:46 | PDOC.HHP ---
Hospitalist HPI - History of Present Illness chest pain- transfer from for NSTEMI History of Present Illness: 59M presented to the ED in [place] this afternoon after having chest pain for almost 12 hours. Reports he had substernal chest pain when he went to bed and woke up with similar pain but also had left arm tingling so he decided to have it checked out. Reports he had a similar episode earlier in the week but it resolved with Tums. He thought he had reflux last night as well and became concerned when it was still there this am with the arm pain. History of CAD with CABG in 01/2019 and has had cardiac stents in the past. Family history of CAD. Also with history of COPD. He denies nausea, diaphoresis or worsening SOB. ED Course: Elevated troponin in the ED at [facility], given NTG paste and Lovenox and sent here for admission and cardiology evaluation. Patient took a full dose ASA prior to arrival. Dr. Olivera contacted by ED who requested admission to CCU and start a nitro drip. Hospitalist BACKFILLER had seen patient prior to cardiology being contacted. Dr. Mobley then notified of CCU admission who came to see patient in the ED. Hospitalist ROS - Review of Systems Constitutional: denies: fever, chills, sweats, weakness, malaise, other Eyes: denies: pain, vision change, conjunctivae inflammation, eyelid inflammation, redness, other ENT: denies: ear pain, ear discharge, nose pain, nose discharge, nose congestion , mouth pain, mouth swelling, throat pain, throat swelling, other Respiratory: reports: shortness of breath (denies increased SOB, reports he feels some SOB all the time with his COPD) Cardiovascular: reports: chest pain Gastrointestinal: denies: nausea, vomiting, abdominal pain, diarrhea, constipation, melena, hematochezia, other Genitourinary: denies: dysuria, frequency, incontinence, hematuria, retention, other Musculoskeletal: reports: arm pain (left arm tingling) Neurological: reports: other (left arm tingling) - Medication Medications: Active Medications Generic Name Dose Route Start Last Admin Trade Name Freq PRN Reason Stop Dose Admin Atorvastatin Calcium 40 mg 08/10/19 21:00 08/10/19 20:54 Lipitor PO 40 mg HS DANE Administration Hospitalist History - Past Medical History Cardiac: reports: CAD, HTN, MA, Hyperlipidemia Pulmonary: reports: COPD, hypertension Gastrointestinal: denies: no pertinent history, Constipation, Diverticulosis, GERD, GI bleed, Gastritis, Hemorrhoids, Inflam bowel disease, Irritable bowel disease, Peptic ulcer disease, Other Heme/Onc: denies: no pertinent history, Anemia NOS, B12 deficiency, Cancer, Hemochromatosis, Iron deficiency anemia, Sickle cell disease, Sickle cell trait , Other Rheumatologic: denies: no pertinent history, Fibromyalgia, Gout, Rheumatoid arthritis, Vasculitis, Other Infectious Disease: denies: no pertinent history, Bacterial vaginosis, [place], Gonorrhea, HIV, Human papilloma virus, Herpes simplex 1, Herpes simplex 2, Herpes zoster, Other ENT: denies: no pertinent history, Sinusitis, Allergic rhinitis, Other Renal/: denies: no pertinent history, Chronic renal insuff, Acute renal failure, Chronic renal failure, UTI, Benign prostatic enlarg., Hematuria, Other Endocrine: denies: no pertinent history, Diabetes, Hyperthyroidism, Hypothyroidism, Hyperparathyroidism, Osteopenia, Osteoporosis, Other - Past Surgical History Past Surgical History: reports: CABG - Family History Family History: reports: cardiac disorder, hyperlipidemia, hypertension - Social History Smoking Status: Former smoker Tobacco Type: cigarettes Alcohol: reports: None Drugs: reports: none Living Situation: With Family Activity level: independent ambulation - Exam Eye: PERRL, anicteric sclera ENT: normocephalic atraumatic, moist mucosa ENT - other findings: missing teeth Neck: supple, no JVD Heart: RRR, normal peripheral pulses Respiratory: CTAB, normal chest expansion Gastrointestinal: soft, non-tender Extremities: no cyanosis, no edema Skin: normal turgor Neurological: cranial nerve grossly intact Musculoskeletal: normal tone Psychiatric: normal affect, A&O x 3 Hospitalist Results - Labs Lab results: CK-MB (CK-2) 86.8 ng/mL (0-6.6) H* 08/10/19 18:04 Troponin I 11.178 ng/mL (< 0.028) H* 08/10/19 19:58 Hospitalist H&P A/P - Problem (1) NSTEMI (non-ST elevated myocardial infarction) Code(s): I21.4 - NON-ST ELEVATION (NSTEMI) MYOCARDIAL INFARCTION Status: Acute (2) Hypertension Code(s): I10 - ESSENTIAL (PRIMARY) HYPERTENSION Status: Chronic (3) Dyslipidemia Code(s): E78.5 - HYPERLIPIDEMIA, UNSPECIFIED Status: Chronic (4) COPD (chronic obstructive pulmonary disease) Status: Chronic - Plan Plan: Admit to CCU Nitroglycerin drip trend troponins Lovenox 1mg/kg BID Cardiology and Pulmonology consultation GI prophylaxis restart home medications Check CMP, CBC, mag in AM Echo ordered Case discussed with Dr. Mobley who has seen patient and agrees with plan, please see his note.
--- NOTE | 2019-08-11 03:09 | CON ---
DATE OF CONSULTATION: 08/10/2019 REASON FOR CONSULTATION: Unstable angina. PRIMARY CLIP ON SUNGLASSES INSPECTOR: Tre Ugalde MD. HISTORY OF PRESENT ILLNESS: Is a pleasant 59-year-old gentleman with history of CAD, status post bypass surgery. He has undergone stent placement x3 in the past. He then underwent a bypass surgery in January of 2019. He had a GARCIA to the LAD, saphenous vein graft to an OM, and saphenous vein graft to diagonal branch. He states he was in normal state of health and developed acute onset of chest pain on Sunday evening. This lasted for several minutes, then subsided. He then had another episode on Sunday morning. He presented to the emergency room today with a left arm tingling and minimal chest pain. He states that given the events from Sunday and Sunday, he decided to proceed to the emergency room. His initial troponin at the [facility] was 10.3. Given that Dr. Tre Ugalde is his pad machine operator, he was transferred to [facility]. During my assessment, Mr. Hernandez was chest pain-free. PAST MEDICAL HISTORY: As described above including hypertension, hyperlipidemia, CAD, COPD, pneumothorax. HOME MEDICATIONS: 1. Lisinopril. 2. Metoprolol. 3. Atorvastatin. 4. Aspirin. 5. Magnesium. 6. ProAir. ALLERGIES: NONE. SOCIAL HISTORY: No current tobacco or alcohol use. REVIEW OF SYSTEMS: 10-point review of systems is reviewed and as above, otherwise negative. PHYSICAL EXAMINATION: VITAL SIGNS: Blood pressure 160/101, heart rate 79, respirations 20. General: The patient is a pleasant male, in no acute distress, appears stated age. Head, Eyes, Ears, Nose and Throat: Sclerae without icterus. Mouth: Moist mucous membranes, normal palate. Neck: No jugular venous distention. Carotid upstroke is brisk. No bruits bilaterally. Lungs: Clear to auscultation. Heart: Regular rate and rhythm, normal S1 and S2. Abdomen: Soft, nontender, nondistended. Extremities: No edema. PERTINENT LABORATORY DATA: Initial troponin 10.3. Followup troponin 10.6 and 10.9. Initial CK-MB of 117. Followup CK-MB of 86. EKG shows normal sinus rhythm with ST wave changes suggesting ischemia versus LVH. IMPRESSION: 1. Unstable angina. 2. Coronary artery disease. 3. Status post bypass surgery. RECOMMENDATIONS: Mr. Hernandez is currently pain free. I opted to place Mr. Hernandez on IV nitroglycerin. He was given one dose of Lovenox. He was also preloaded with Plavix. His blood pressures have been an issue. We have titrated his nitroglycerin up to 80 mcg. We will add Cardene if blood pressure continues to be elevated. We would like to see his blood pressure between 110 and 130. Given that he continues to be chest pain free he may likely benefit from coronary angiography in a.m. I discussed procedure in full detail to Mr. Hernandez. Risks include but not limited to the following All questions were answered. The patient will discuss with Dr. Ugalde in a.m. Total critical care time 35 minutes. Job ID: [id number]
[2019-08-11 04:11] LABS: #Lymphocytes 1.5 thou/uL (1.20-3.40); #Monocytes 1.3 thou/uL (0.11-0.59); #Neutrophils 12.7 thou/uL (1.40-6.50); %Basophils 0.1 % (0.0-1.0); %Eosinophils 0.1 % (0.0-10.0); %Lymphocytes 9.7 % (21.0-51.0); %Monocytes 8.5 % (0.0-10.0); %Neutrophils 81.7 % (42.0-75.0); Hemoglobin 14.4 g/dL (14.0-18.0); Mean Corpuscular HGB CONC 34.2 g/dL (32.0-36.0); Mean Corpuscular Hemoglobin 29.9 pg (27.0-31.0); Mean Corpuscular Volume 87.5 fL (78.0-98.0); Mean Platelet Volume 6.9 fL (7.4-10.4); Platelet Count 222 thou/uL (130-400); RBC Distribution Width 12.3 % (11.5-14.5); Red Blood Cell (RBC) Count 4.82 mill/uL (4.70-6.10); White Blood Cell (WBC) Count 15.6 thou/uL (4.8-10.8)
[2019-08-11 04:38] LABS: Anion Gap 13 mmol/L (10-20); BUN (Urea Nitrogen) 20 mg/dL (8.4-25.7); Calc. Creatinine Clearance 94 mL/min (70-130); Calcium 9.2 mg/dL (7.8-10.44); Carbon Dioxide 23 mmol/L (22-29); Cardiac Risk 2.8 (Less than 4.5); Chloride 103 mmol/L (98-107); Cholesterol 147 mg/dl (< 200 Desired); Estimated GFR-MDRD Greater than 90; Glucose 99 mg/dL (70-105); HDL Cholesterol 53 mg/dL (>60 Neg Risk); LDL Cholesterol, Calculated 75 mg/dL; Potassium 3.9 mmol/L (3.5-5.1); Sodium 135 mmol/L (136-145); Triglycerides 96 mg/dL (Less than 150)
[2019-08-11] MEDS: Mometasone 100 MCG HFA INHALER INH SCH ×2 (06:50→19:14)
[2019-08-11] MEDS ORDERED: Aspirin 300 MG Suppository PR SCH (09:00)
[2019-08-11] MEDS ORDERED: Non-Formulary Item 1 EACH (Fluticasone/Umeclidin/Vilanter [Trelegy Ellipta 100-62.5-25] 1 IH SCH (09:00)
[2019-08-11] MEDS ORDERED: FLU VACC QS2019-20(6MOS UP)/PF 60 MCG/0.5 ML SYRINGE IM ONE (09:00)
[2019-08-11] MEDS ORDERED: Aspirin 325 mg Enteric Coated Tablet PO SCH (09:00)
[2019-08-11] MEDS ORDERED: Enoxaparin Sodium 60 MG/0.6 ML SYRINGE SC SCH ×2 (09:00→18:00)
[2019-08-11] MEDS: Lisinopril 20 MG TAB PO SCH (09:38)
[2019-08-11] MEDS ORDERED: Sodium Chloride 0.9% 0 ML ONE (10:12)
[2019-08-11] MEDS ORDERED: Pantoprazole 40 MG VIAL ONE (10:12)
[2019-08-11] MEDS: NIFEdipine XL 30 MG TAB PO SCH (10:15)
--- NOTE | 2019-08-11 17:43 | PDOC.HOSPP ---
- Subjective Encounter Date: 08/11/19 Encounter Time: 11:25 Subjective: pt up in bed no complain of chest pain. - Objective Vital Signs & Weight: Vital Signs (12 hours) Temp Pulse Resp Pulse Ox 08/11/19 16:00 98.1 F 08/11/19 13:40 76 20 93 L 08/11/19 12:00 98.3 F 90 L 08/11/19 08:00 97 08/11/19 07:00 99.6 F 08/11/19 06:52 95 08/11/19 06:49 95 18 95 Weight Weight 137 lb 12.623 oz Most Recent Monitor Data Heart Rate from ECG 84 NIBP 119/70 NIBP BP-Mean 86 Respiration from ECG 28 SpO2 92 I&O: 08/10/19 08/11/19 08/12/19 06:59 06:59 06:59 Intake Total 115 130 Output Total 625 420 Balance -510 -290 Result Diagrams: 08/11/19 02:57 08/11/19 02:57 Hospitalist ROS - Review of Systems Respiratory: denies: cough, dry, shortness of breath, hemoptysis, SOB with excertion, pleuritic pain, sputum, wheezing, other Cardiovascular: denies: chest pain, palpitations, orthopnea, paroxysmal noc. dyspnea, edema, light headedness, other Gastrointestinal: denies: nausea, vomiting, abdominal pain, diarrhea, constipation, melena, hematochezia, other - Medication Medications: Active Medications Generic Name Dose Route Start Last Admin Trade Name Freq PRN Reason Stop Dose Admin Albuterol/Ipratropium 3 ml 08/11/19 07:00 08/11/19 13:40 Duoneb NEB 3 ml [id number] DANE Administration Aspirin 325 mg 08/11/19 09:00 08/11/19 08:38 Ecotrin PO 325 mg DAILY DANE Administration Lisinopril 40 mg 08/11/19 09:00 08/11/19 09:38 Zestril PO 40 mg DAILY DANE Administration Metoprolol Succinate 100 mg 08/11/19 09:00 08/11/19 08:37 Toprol Xl PO 100 mg DAILY DANE Administration Mometasone Furoate 1 puff 08/11/19 06:30 08/11/19 06:50 Asmanex Hfa 100 Mcg INH 1 puff BID-RT DANE Administration Nifedipine 30 mg 08/11/19 09:00 08/11/19 10:15 Procardia Xl PO 30 mg DAILY DANE Administration - Exam Neck: negative: supple, symmetric, no JVD, no thyromegaly, no lymphadenopathy, no carotid bruit, JVD Heart: negative: RRR, no murmur, no gallops, no rubs, normal peripheral pulses, irregular, diminshed peripheral pulses, murmur present, II/IV, III/IV Respiratory: negative: CTAB, no wheezes, no rales, no ronchi, normal chest expansion, no tachypnea, normal percussion, rales, rhonchi, tachypneic, wheezes Gastrointestinal: negative: soft, non-tender, non-distended, normal bowel sounds , no palpable masses, no hepatomegaly, no splenomegaly, no bruit, no guarding, no rigidity, tender to palpation, distended, diminished bowl sounds, voluntary guarding Hosp A/P (1) NSTEMI (non-ST elevated myocardial infarction) Code(s): I21.4 - NON-ST ELEVATION (NSTEMI) MYOCARDIAL INFARCTION Status: Acute (2) COPD (chronic obstructive pulmonary disease) Status: Chronic (3) Dyslipidemia Code(s): E78.5 - HYPERLIPIDEMIA, UNSPECIFIED Status: Chronic (4) Hypertension Code(s): I10 - ESSENTIAL (PRIMARY) HYPERTENSION Status: Chronic (5) CAD (coronary artery disease), autologous vein bypass graft Code(s): I25.810 - ATHEROSCLEROSIS OF CABG W/O ANGINA PECTORIS Status: Acute - Plan will continue nitro for now. pt to go for cardiac cath in am. will given him a dose of Lovenox for now. He got a loading dose of plavix. he is currently chest pain free.
[2019-08-11] MEDS: Atorvastatin Calcium 40 MG TAB PO SCH (21:39)
[2019-08-11] MEDS ORDERED: Melatonin 3 MG TAB PO SCH (21:45)
[2019-08-12 04:18] LABS: #Basophils 0.1 thou/uL (0.0-0.2); #Lymphocytes 1.8 thou/uL (1.20-3.40); #Monocytes 1.4 thou/uL (0.11-0.59); #Neutrophils 10.9 thou/uL (1.40-6.50); %Basophils 0.5 % (0.0-1.0); %Eosinophils 0.3 % (0.0-10.0); %Lymphocytes 12.7 % (21.0-51.0); %Monocytes 9.6 % (0.0-10.0); Hemoglobin 13.2 g/dL (14.0-18.0); Mean Corpuscular HGB CONC 33.5 g/dL (32.0-36.0); Mean Corpuscular Hemoglobin 29.3 pg (27.0-31.0); Mean Corpuscular Volume 87.5 fL (78.0-98.0); Mean Platelet Volume 7.2 fL (7.4-10.4); Platelet Count 208 thou/uL (130-400); RBC Distribution Width 12.3 % (11.5-14.5); Red Blood Cell (RBC) Count 4.51 mill/uL (4.70-6.10); White Blood Cell (WBC) Count 14.1 thou/uL (4.8-10.8)
[2019-08-12 04:31] LABS: Anion Gap 13 mmol/L (10-20); BUN (Urea Nitrogen) 15 mg/dL (8.4-25.7); Calc. Creatinine Clearance 105 mL/min (70-130); Carbon Dioxide 24 mmol/L (22-29); Chloride 101 mmol/L (98-107); Estimated GFR-MDRD Greater than 90; Glucose 102 mg/dL (70-105); Potassium 3.6 mmol/L (3.5-5.1); Sodium 134 mmol/L (136-145)
[2019-08-12] MEDS ORDERED: Sodium Chloride 0.9% 1,000 ML IV SCH ×2 (06:00→08:25)
[2019-08-12] MEDS ORDERED: Heparin 10,000 UNITS/1 ML VIAL ONE (06:29)
[2019-08-12] MEDS ORDERED: Midazolam HCl 2 mg/2 ml Vial ONE (07:02)
[2019-08-12] MEDS ORDERED: Fentanyl 100 MCG/2 ML VIAL ONE (07:02)
[2019-08-12] MEDS: Mometasone 100 MCG HFA INHALER INH SCH ×2 (07:15→19:09)
[2019-08-12] MEDS ORDERED: Protamine Sulfate 50 MG/5 ML VIAL ONE (07:37)
[2019-08-12] MEDS ORDERED: Clopidogrel Bisulfate 300 MG TAB PO SCH (08:15)
[2019-08-12] MEDS ORDERED: Nitroglycerin 0.4 MG TAB (25 Tab Bottle) SL PRN (08:24)
[2019-08-12] MEDS ORDERED: Acetaminophen/Codeine 30-300mg Tablet PO PRN ×2 (08:24)
[2019-08-12] MEDS ORDERED: Sodium Chloride 0.9% 200 ML IV PRN (08:24)
[2019-08-12] MEDS ORDERED: TICAGRELOR 90 MG TABLET PO ONE (08:30)
[2019-08-12] MEDS ORDERED: Iopamidol 370 76% 50 ML VIAL FS ONE (09:10)
[2019-08-12] MEDS ORDERED: Iopamidol 370 76% 100 ML VIAL ONE (09:10)
[2019-08-12] MEDS: Lisinopril 20 MG TAB PO SCH (10:16)
[2019-08-12] MEDS: NIFEdipine XL 30 MG TAB PO SCH (10:17)
[2019-08-12] MEDS: Aspirin 81 mg Enteric Coated Tablet PO SCH (10:17)
[2019-08-12] MEDS: Ezetimibe 10 MG TAB PO SCH (10:18)
--- NOTE | 2019-08-12 11:44 | EKG ---
Test Reason : Blood Pressure : / mmHG Vent. Rate : 090 BPM Atrial Rate : 090 BPM P-R Int : 116 ms QRS Dur : 094 ms QT Int : 388 ms P-R-T Axes : 078 062 098 degrees QTc Int : 474 ms Normal sinus rhythm Left ventricular hypertrophy with repolarization abnormality Abnormal ECG When compared with ECG of 10-AUG-2019 15:54, (Unconfirmed) No significant change was found Confirmed by SRI BOX, . SPieter ([id number]) on 08/12/2019 11:44:28 AM Referred By: KLEVER Confirmed By:DR. Shawn FIERRO MD
[2019-08-12] MEDS ORDERED: Melatonin 3 MG TAB PO SCH (21:00)
[2019-08-12] MEDS: TICAGRELOR 90 MG TABLET PO SCH (21:04)
[2019-08-12] MEDS: Atorvastatin Calcium 40 MG TAB PO SCH (21:05)
[2019-08-13 04:34] LABS: #Eosinphils 0.1 thou/uL (0.0-0.7); #Lymphocytes 1.7 thou/uL (1.20-3.40); #Monocytes 1.1 thou/uL (0.11-0.59); #Neutrophils 7.1 thou/uL (1.40-6.50); %Basophils 0.3 % (0.0-1.0); %Monocytes 11.1 % (0.0-10.0); %Neutrophils 70.6 % (42.0-75.0); Hemoglobin 13.3 g/dL (14.0-18.0); Mean Corpuscular Volume 88.3 fL (78.0-98.0); Mean Platelet Volume 6.9 fL (7.4-10.4); Platelet Count 201 thou/uL (130-400); RBC Distribution Width 12.2 % (11.5-14.5); Red Blood Cell (RBC) Count 4.43 mill/uL (4.70-6.10)
[2019-08-13 04:55] LABS: Anion Gap 11 mmol/L (10-20); BUN (Urea Nitrogen) 12 mg/dL (8.4-25.7); Calc. Creatinine Clearance 99 mL/min (70-130); Calcium 9.1 mg/dL (7.8-10.44); Carbon Dioxide 25 mmol/L (22-29); Chloride 105 mmol/L (98-107); Estimated GFR-MDRD Greater than 90; Glucose 103 mg/dL (70-105); Potassium 4.1 mmol/L (3.5-5.1); Sodium 137 mmol/L (136-145)
[2019-08-13] MEDS: Mometasone 100 MCG HFA INHALER INH SCH (07:43)
--- NOTE | 2019-08-13 08:16 | PDOC.HOSPP ---
- Subjective Encounter Date: 08/13/19 Encounter Time: 11:15 Subjective: pt up in bed post cath no complains of chest pain or sob. - Objective Vital Signs & Weight: Vital Signs (12 hours) Temp Pulse Resp BP Pulse Ox 08/13/19 07:43 92 16 92 L 08/13/19 07:41 92 16 92 L 08/13/19 04:16 98.4 F 88 16 144/82 H Weight Weight 137 lb 12.623 oz Most Recent Monitor Data Heart Rate from ECG 72 NIBP 118/76 NIBP BP-Mean 90 Respiration from ECG 23 SpO2 95 I&O: 08/12/19 08/13/19 08/14/19 06:59 06:59 06:59 Intake Total 548.6 2169 Output Total 1070 1075 Balance -521.4 1094 Result Diagrams: 08/13/19 04:25 08/13/19 04:25 Hospitalist ROS - Medication Medications: Active Medications Generic Name Dose Route Start Last Admin Trade Name Freq PRN Reason Stop Dose Admin Acetaminophen 650 mg 08/10/19 17:48 08/12/19 18:39 Tylenol PO 650 mg Q4H PRN Administration Headache/Fever Albuterol/Ipratropium 3 ml 08/11/19 07:00 08/13/19 07:41 Duoneb NEB 3 ml [id number] DANE Administration Aspirin 81 mg 08/12/19 09:00 08/12/19 10:17 Ecotrin PO 81 mg DAILY DANE Administration Atorvastatin Calcium 80 mg 08/11/19 21:00 08/12/19 21:05 Lipitor PO 80 mg HS DANE Administration Ezetimibe 10 mg 08/12/19 09:00 08/12/19 10:18 Zetia PO 10 mg DAILY DANE Administration Lisinopril 40 mg 08/11/19 09:00 08/12/19 10:16 Zestril PO 40 mg DAILY DANE Administration Melatonin 9 mg 08/12/19 21:00 08/12/19 21:05 Melatonin PO 9 mg HS DANE Administration Metoprolol Succinate 100 mg 08/11/19 09:00 08/12/19 10:17 Toprol Xl PO 100 mg DAILY DANE Administration Mometasone Furoate 1 puff 08/11/19 06:30 08/13/19 07:43 Asmanex Hfa 100 Mcg INH 1 puff BID-RT DANE Administration Nifedipine 30 mg 08/11/19 09:00 08/12/19 10:17 Procardia Xl PO 30 mg DAILY DANE Administration Ticagrelor 90 mg 08/12/19 21:00 08/12/19 21:04 Brilinta PO 90 mg BID DANE Administration Hosp A/P (1) NSTEMI (non-ST elevated myocardial infarction) Code(s): I21.4 - NON-ST ELEVATION (NSTEMI) MYOCARDIAL INFARCTION Status: Acute (2) COPD (chronic obstructive pulmonary disease) Status: Chronic (3) Dyslipidemia Code(s): E78.5 - HYPERLIPIDEMIA, UNSPECIFIED Status: Chronic (4) Hypertension Code(s): I10 - ESSENTIAL (PRIMARY) HYPERTENSION Status: Chronic (5) CAD (coronary artery disease), autologous vein bypass graft Code(s): I25.810 - ATHEROSCLEROSIS OF CABG W/O ANGINA PECTORIS Status: Acute - Plan will continue nitro for now. pt to go for cardiac cath in am. will given him a dose of Lovenox for now. He got a loading dose of plavix. he is currently chest pain free. 08/11 post cath, medical management. pt is off nitro drip. He will be transferred to the floor and possible discharge in am.
[2019-08-13] MEDS ORDERED: FLU VACC QS2019-20(6MOS UP)/PF 60 MCG/0.5 ML SYRINGE IM ONE (09:00)
[2019-08-13] MEDS ORDERED: Clopidogrel Bisulfate 75 MG TAB PO SCH (09:00)
[2019-08-13] MEDS: Ezetimibe 10 MG TAB PO SCH (09:12)
[2019-08-13] MEDS: Lisinopril 20 MG TAB PO SCH (09:13)
[2019-08-13] MEDS: Aspirin 81 mg Enteric Coated Tablet PO SCH (09:13)
[2019-08-13] MEDS: TICAGRELOR 90 MG TABLET PO SCH (09:13)
[2019-08-13] MEDS: NIFEdipine XL 30 MG TAB PO SCH (09:14)
[2019-08-13 13:07] VITALS: BP 156/87; TEMP 97.1
--- NOTE | 2019-08-13 20:35 | DIS ---
DATE OF ADMISSION: 08/10/2019 DATE OF DISCHARGE: 08/13/2019 DISCHARGE DIAGNOSES: As of the following. 1. Emu-NR-muqsvgmma myocardial infarction. 2. Coronary artery disease. 3. Hypertension. 4. Chronic obstructive pulmonary disease, not in any exacerbation, chronic, stable. HOSPITAL COURSE: Patient is a very pleasant 59-year-old male, who initially presented to the hospital on 08/10 with complaints of chest tightness. He was found to have significantly elevated troponins. He has a history of CABG in 2019 and also had cardiac stents prior to that. He was seen by Cardiology and underwent a cardiac catheterization and had 2-vessel coronary artery disease, LAD and circumflex 2/3 grafts were patent and he had mild impaired ventricular function. At this time, the decision was made to do medical management. He had 40% stenosis to the lesion to the left main coronary artery. He had 80% stenosis to the proximal LAD and a 100% stenosis of the lesion to the first obtuse marginal and a lesion to the mid RCA 30% and proximal RCA 20%. At this time, recommendation was medical management. Patient's home medications will be: 1. Aspirin 81 mg daily. 2. Atorvastatin 80 mg daily. 3. Zetia 10 mg daily. 4. Brilinta 90 mg twice a day. 5. Albuterol as needed. 6. Lisinopril 40 mg daily. 7. Metoprolol 50 mg twice a day. 8. Procardia 30 mg daily. 9. Melatonin 10 mg p.o. at bedtime. PHYSICAL EXAMINATION: VITAL SIGNS: Temperature 97.1, 80, 16, 97% on room air, and 156/87. GENERAL: He is awake, alert, and oriented x3. Does not appear in distress. CV: S1, S2 present. No murmurs, rubs, or gallops. ABDOMEN: Again, his groin incision is intact. EXTREMITIES: Pedal pulses present. DISPOSITION: He will be discharged home. FOLLOWUP: He will follow up with his Primary. Job ID: [id number]
== END 2019-08-13 15:45 | disposition home or self-care (01) | DRG 282 ==
LOC: ERS 15:11 → CCU 16:38 → 2NO 08-12 21:28
PROVIDERS: ADMIT Internal Medicine; ATTEND Internal Medicine
PROC: 4A023N7 Measurement of Cardiac Sampling and Pressure, Left Heart, Percutaneous Approach (ICD-10-PCS; principal; 2019-08-10)
PROC: B2111ZZ Fluoroscopy of Multiple Coronary Arteries using Low Osmolar Contrast (ICD-10-PCS; 2019-08-10)
PROC: B2151ZZ Fluoroscopy of Left Heart using Low Osmolar Contrast (ICD-10-PCS; 2019-08-10)
DX: I21.4 Non-ST elevation (NSTEMI) myocardial infarction (principal); I25.10 Atherosclerotic heart disease of native coronary artery without angina pectoris; E78.5 Hyperlipidemia, unspecified; E78.00 Pure hypercholesterolemia, unspecified; I10 Essential (primary) hypertension; J44.9 Chronic obstructive pulmonary disease, unspecified; Z95.1 Presence of aortocoronary bypass graft; Z95.5 Presence of coronary angioplasty implant and graft; I25.2 Old myocardial infarction; Z87.891 Personal history of nicotine dependence
CPT/HCPCS: 36415; 80048; 80061; 82553; 84484; 85025; 85347; 90471; 90686; 90732; 93005; 93010; 93306; 93459; 93798; 94640; 94760; 96365; 96375; 99152; C1769; C9113; G0008; G0009; J1644; J1650; J2250; J2270; J2405; J2720; J3010; J3490; J7620; Q9967

== ENCOUNTER 2019-12-19 19:30 | Outpatient (CLI) | payer BC | END 2019-12-19 19:31 | disposition home or self-care (01) | LOC: SLEEPLAB 19:30 | PROVIDERS: ATTEND Internal Medicine | DX: G47.33 Obstructive sleep apnea (adult) (pediatric) (principal); R53.83 Other fatigue; R06.83 Snoring; R35.1 Nocturia; J44.9 Chronic obstructive pulmonary disease, unspecified; I10 Essential (primary) hypertension; I21.9 Acute myocardial infarction, unspecified; I25.10 Atherosclerotic heart disease of native coronary artery without angina pectoris | CPT/HCPCS: 95811 ==

== ENCOUNTER 2020-05-23 10:16 | Emergency (ER) | payer BC ==
[2020-05-23] MEDS ORDERED: methylPREDNISolone Sod Succ/PF 125 MG/2 ML VIAL ONE (10:48)
[2020-05-23] MEDS ORDERED: Magnesium 2 GM/50 ML BAG (IN WATER) ONE (10:48)
--- NOTE | 2020-05-23 10:55 | RAD ---
Exam: Chest one view HISTORY:Dyspnea Comparison: 01/29/2019, 08/10/2019 FINDINGS: Cardiac silhouette:Normal heart size. There are sternotomy wires. There are coronary stents. Aorta: Atherosclerosis. Pulmonary vessels: Normal Costophrenic angles: Clear LUNGS: Hyperinflation with chronic changes. Stable calcified granulomas in the left or right lung. Pneumothorax: None Osseous abnormalities: None IMPRESSION: No acute cardiopulmonary process.
[2020-05-23 11:07] LABS: #Basophils 0.1 thou/uL (0.0-0.2); #Eosinphils 0.3 thou/uL (0.0-0.7); #Lymphocytes 2.1 thou/uL (1.20-3.40); #Monocytes 0.7 thou/uL (0.11-0.59); #Neutrophils 6.1 thou/uL (1.40-6.50); %Basophils 1.1 % (0.0-1.0); %Eosinophils 2.8 % (0.0-10.0); %Lymphocytes 22.1 % (21.0-51.0); %Monocytes 7.9 % (0.0-10.0); %Neutrophils 66.1 % (42.0-75.0); Hemoglobin 15.6 g/dL (14.0-18.0); Mean Corpuscular HGB CONC 33.1 g/dL (32.0-36.0); Mean Corpuscular Hemoglobin 29.5 pg (27.0-31.0); Mean Corpuscular Volume 89.2 fL (78.0-98.0); Mean Platelet Volume 6.8 fL (7.4-10.4); Platelet Count 270 thou/uL (130-400); RBC Distribution Width 12.2 % (11.5-14.5); Red Blood Cell (RBC) Count 5.29 mill/uL (4.70-6.10); White Blood Cell (WBC) Count 9.3 thou/uL (4.8-10.8)
[2020-05-23 11:31] LABS: ALT (SGPT) 35 U/L (8-55); AST (SGOT) 26 U/L (5-34); Albumin 4.5 g/dL (3.4-4.8); Alkaline Phosphatase 78 U/L (40-110); Anion Gap 13 mmol/L (10-20); BUN (Urea Nitrogen) 14 mg/dL (8.4-25.7); Calc. Creatinine Clearance 0 mL/min (70-130); Calcium 9.1 mg/dL (7.8-10.44); Carbon Dioxide 26 mmol/L (23-31); Chloride 105 mmol/L (98-107); Globulin 2.8 g/dL (2.4-3.5); Glucose 95 mg/dL (80-115); Potassium 3.8 mmol/L (3.5-5.1); Protein, Total 7.3 g/dL (5.8-8.1); Sodium 140 mmol/L (136-145)
== END 2020-05-23 12:49 | disposition home or self-care (01) ==
LOC: ERS 10:16
DX: J44.1 Chronic obstructive pulmonary disease with (acute) exacerbation (principal); Z79.899 Other long term (current) drug therapy; Z79.82 Long term (current) use of aspirin; I25.2 Old myocardial infarction
CPT/HCPCS: 71045; 80053; 83880; 84484; 85025; 93005; 94640; 96365; 96375; J2930; J3475; J7620

== ENCOUNTER 2023-03-01 08:11 | Outpatient (CLI) | payer BC | END 2023-03-01 08:12 | disposition home or self-care (01) | LOC: RAD 08:11 | PROVIDERS: ATTEND Internal Medicine Critical Care Medicine | DX: R06.00 Dyspnea, unspecified (principal) | CPT/HCPCS: 71046 ==

== ENCOUNTER 2023-05-03 16:57 | Emergency (ER) | payer BC ==
[2023-05-03 18:01] LABS: #Monocytes 1.4 thou/uL (0.11-0.59); #Neutrophils 16.3 thou/uL (1.40-6.50); %Basophils 0.2 % (0.0-1.0); %Eosinophils 0.1 % (0.0-10.0); %Lymphocytes 4.2 % (21.0-51.0); %Monocytes 7.6 % (0.0-10.0); %Neutrophils 87.4 % (42.0-75.0); Hematocrit 44.6 % (42.0-52.0); Hemoglobin 14.9 g/dL (14.0-18.0); Mean Corpuscular HGB CONC 33.4 g/dL (32.0-36.0); Mean Corpuscular Hemoglobin 30.7 pg (27.0-31.0); Mean Platelet Volume 9.4 fL (7.4-10.4); Platelet Count 273 10x3/uL (130-400); Red Blood Cell (RBC) Count 4.85 mill/uL (4.70-6.10); White Blood Cell (WBC) Count 18.7 10x3/uL (4.8-10.8)
[2023-05-03] MEDS ORDERED: Acetaminophen 500 MG TAB ONE (18:02)
[2023-05-03 18:24] LABS: ALT (SGPT) 15 U/L (8-55); AST (SGOT) 13 U/L (5-34); Albumin 4.1 g/dL (3.4-4.8); Alkaline Phosphatase 71 U/L (40-110); Anion Gap 12 mmol/L (10-20); BUN (Urea Nitrogen) 20 mg/dL (8.4-25.7); Bilirubin, Total 2.2 mg/dL (0.2-1.2); Calc. Creatinine Clearance 0 mL/min (70-130); Calcium 9.4 mg/dL (7.8-10.44); Carbon Dioxide 28 mmol/L (23-31); Chloride 102 mmol/L (98-107); Estimated GFR 99; Globulin 3.2 g/dL (2.4-3.5); Glucose 128 mg/dL (80-115); Lipase 5 U/L (8-78); Potassium 3.1 mmol/L (3.5-5.1); Protein, Total 7.3 g/dL (5.8-8.1); Sodium 139 mmol/L (136-145)
[2023-05-03 18:28] LABS: Troponin I Less than 0.010 ng/mL (< 0.028)
[2023-05-03] MEDS ORDERED: Sodium Chloride 0.9% 100 ML ONE (19:34)
[2023-05-03] MEDS ORDERED: cefTRIAXone (ROCEPHIN) 1 GM VIAL ONE (19:34)
== END 2023-05-03 20:07 | disposition home or self-care (01) ==
LOC: ERS 16:57
DX: J18.9 Pneumonia, unspecified organism (principal); J44.9 Chronic obstructive pulmonary disease, unspecified; I10 Essential (primary) hypertension; Z20.822 Contact with and (suspected) exposure to COVID-19
CPT/HCPCS: 36415; 71045; 80053; 83690; 83880; 84484; 85025; 85379; 93005; 96365; J0696; J3490